=== PATIENT | male | born 1985 | race Caucasian/White ===

== ENCOUNTER 2021-10-30 02:57 | Emergency (ER) | payer SELFPAY ==
[2021-10-30 03:08] VITALS: BP 145/102; PULSE 65; RESP 16; TEMP 36.5; O2SAT 97; BMI 33.2
[2021-10-30 03:11] VITALS: RESP 16; O2SAT 98
--- NOTE | 2021-10-30 03:13 | ED.GENADULT ---
HPI - General Adult General Chief complaint: Unspecified Complaint, Adult Stated complaint: Shingles but in alot of pain Time Seen by Provider: 10/30/21 03:09 History of Present Illness HPI narrative: Patient is a 36-year-old gentleman who presents with pain in rash on the right side of his chest consistent with shingles eruption. There is no signs of secondary infection. He is on antiviral. He has had no fevers no chills no night sweats. The rash does not cross the midline is clearly shingles. He is suffering from severe pain. Symptoms have been present for approximately a week. Related Data Home Medications Medication Instructions Recorded Confirmed ketoconazole 2 % topical cream 1 applic topical BID 10/29/21 10/29/21 Previous Rx's Medication Instructions Recorded prednisone 20 mg tablet 20 mg PO QDAY #5 tabs 10/29/21 valacyclovir 1 gram tablet 1,000 mg PO TID 7 days #21 tabs 10/29/21 (Valtrex) Allergies Allergy/AdvReac Type Severity Reaction Status Date / Time Penicillins Allergy Intermediate Hives Verified 10/29/21 08:09 Review of Systems Status of ROS: Reports: 10 or more systems reviewed and unremarkable except as noted in History and below [facility] Medical History (Updated 10/30/21 @ 03:16 by Dayo Buchanan MD) Shingles Social History Smoking Status: Never smoker Do you use any of these nicotine containing products: None How often do you have a drink containing alcohol: never AUDIT-C Alcohol total score: 0 Non-prescribed substance use: denies use Exam Narrative: Exam Narrative: EXAM GENERAL: Patient appears comfortable and well. EYES: No scleral icterus. ENT: Tympanic membranes and oropharynx normal. THYROID: no thyroid nodules or thyromegaly. LYMPH: No supraclavicular or cervical lymphadenopathy. SKIN: Obvious right-sided thoracic shingles eruption noted. EXT: No dependent lower extremity pedal edema. HEART: Regular rate and rhythm with no murmurs, rubs, or gallops. LUNGS: Clear to auscultation bilaterally with no crackles or wheezes. ABD: Soft, non tender, non distended. PSYCH: Good eye contact, speech is not pressured. Const: Vital Signs, click to edit/add: Vital Signs - 24 hr 10/30/21 03:08 10/30/21 03:11 Temperature 97.7 F Pulse Rate [Right Pulse Oximeter] 65 Respiratory Rate 16 Respiratory Rate [ Right Chest] 16 Blood Pressure [Le ft Upper Arm] 145/102 H Pulse Oximetry 97 Oxygen Delivery Me thod Room Air Course Course Hospital Course: We did treat with topical calamine lotion and Tylenol with codeine. Will follow up with his primary physician as needed. Tetanus shot was updated. Vital Signs Vital signs: Initial Vital Signs Temperature 97.7 F 10/30/21 03:08 Temperature Source Temporal Artery Scan 10/30/21 03:08 Pulse Rate 65 10/30/21 03:08 Pulse Rhythm 10/30/21 03:08 Respiratory Rate 16 10/30/21 03:08 Blood Pressure 145/102 H 10/30/21 03:08 Blood Pressure Mean 116 10/30/21 03:08 Blood Pressure Position Sitting 10/30/21 03:08 Pulse Oximetry 97 10/30/21 03:08 Oxygen Delivery Method 10/30/21 03:08 Vital Signs Temperature 97.7 F 10/30/21 03:08 Pulse Rate 65 10/30/21 03:08 Respiratory Rate 16 10/30/21 03:08 Blood Pressure 145/102 H 10/30/21 03:08 Pulse Oximetry 97 10/30/21 03:08 Oxygen Delivery Method 10/30/21 03:08 Temperature 97.7 F 10/30/21 03:08 Pulse Rate 65 10/30/21 03:08 Respiratory Rate 16 10/30/21 03:11 Blood Pressure 145/102 H 10/30/21 03:08 Pulse Oximetry 97 10/30/21 03:08 Oxygen Delivery Method 10/30/21 03:08 Discharge Plan Discharge Clinical Impression: Shingles Patient Disposition: Home, Self-Care Condition: Stable Instructions: Shingles (ED) Prescriptions: No Action ketoconazole 2 % cream 1 applic topical BID valacyclovir [Valtrex] 1 gram tablet 1,000 mg PO TID 7 Days Qty: 21 0RF prednisone 20 mg tablet 20 mg PO QDAY Qty: 5 0RF Follow Up/Referrals: Jenniffer Castro MD [Primary Care Provider] - Stand Alone Forms: MyHealth Info Instructions
[2021-10-30] MEDS: TETANUS/DIPHTH/PERTUSSIS 0.5 ML SYRINGE IM (03:23)
[2021-10-30 03:29] VITALS: RESP 16
== END 2021-10-30 03:30 | disposition home or self-care (01) ==
LOC: ED 03:22
PROVIDERS: Emergency Provider Internal Medicine
DX: B02.9 Zoster without complications (principal)
CPT/HCPCS: 90471; 90715; 99282; 99283; 99284

== ENCOUNTER 2024-11-10 07:50 | Outpatient (CLI) | payer BC, SELFPAY | END 2024-11-10 07:51 | disposition home or self-care (01) | LOC: NFLDREF 11-14 14:27 | PROVIDERS: PCP Family Medicine; Referring Provider Family Medicine; Visit Provider Family Medicine | DX: Z13.1 Encounter for screening for diabetes mellitus (principal); Z13.6 Encounter for screening for cardiovascular disorders | CPT/HCPCS: 80061; 82947 ==